=== PATIENT | male | born 1990 | race Asian ===

== ENCOUNTER 2017-06-25 06:04 | Inpatient (IN) | payer OTHER ==
[~2017-06-25] VITALS: Ht 182.9 cm; Wt 78.8 kg
[2017-06-25] VITALS (20 sets, daily range): BP systolic 119–155; BP diastolic 64–92; PULSE 71–108; RESP 10–20; Ht 182.9 cm; Wt 78.8 kg
[2017-06-25] MEDS ORDERED: MIDAZOLAM 1 MG/ML 2 ML INJ ONE ×2 (06:07→14:43)
[2017-06-25] MEDS ORDERED: ROPIVACAINE 0.5 % 30 ML VIAL ONE ×4 (06:08→15:46)
[2017-06-25] MEDS ORDERED: MIRT7.5T8 PO (06:46)
[2017-06-25] MEDS ORDERED: POLYMYXIN/BACITRACIN 1L IRRIG ONE (06:48)
[2017-06-25] MEDS ORDERED: LACTATED RINGER'S 1,000 ML IV SCH (07:00)
[2017-06-25] MEDS ORDERED: SEVOFLURANE 15 MIN ONE (07:00)
--- NOTE | 2017-06-25 07:31 | HPN ---
Date/Time of Note Date/Time of Note DATE: 06/25/17 TIME: 07:31 Interval H&P Admission Note Pt. seen H&P reviewed: No system changes DELTA PAREDES MD Jun 25, 2017 07:31
[2017-06-25] MEDS ORDERED: PHENYLephrine (100 MCG/ML) 5ML SYG ONE (07:36)
[2017-06-25] MEDS ORDERED: HEPARIN 1000 UNITS/ML 10 ML INJ ONE (08:12)
[2017-06-25] MEDS ORDERED: BUPIVACAINE 0.5% (SDV) 30 ML INJ ONE (08:49)
[2017-06-25] MEDS ORDERED: SODIUM CL BACTERIOSTATIC 30 ML INJ ZFS ONE (08:55)
[2017-06-25] MEDS ORDERED: ONDANSETRON 4 MG INJ ONE (11:28)
[2017-06-25] MEDS ORDERED: BACITRACIN/POLYMYXIN 28.35 GM OINT TOP ONE (11:28)
[2017-06-25] MEDS ORDERED: CEFAZOLIN 1 GM INJ ONE (11:28)
[2017-06-25] MEDS ORDERED: ROCURONIUM 50 MG INJ ONE (11:28)
[2017-06-25] MEDS ORDERED: PROPOFOL 20 ML ONE (11:28)
[2017-06-25] MEDS ORDERED: LIDOCAINE 2% (SDV) 5 ML INJ ONE (11:28)
[2017-06-25] MEDS ORDERED: morphine 10 MG INJ ONE (11:30)
[2017-06-25] MEDS ORDERED: BACITRACIN/POLYMYXIN 0.9 GM OINT TOP ONE (11:50)
--- NOTE | 2017-06-25 12:02 | OPR ---
Date/Time of Note Date/Time of Note DATE: 06/25/17 TIME: 11:57 Operative Report Preoperative Diagnosis Right subtalar post traumatic arthritis Postoperative Diagnosis Right subtalar post traumatic arthritis Operation/Procedure Performed Right subtalar arthrodesis with iliac crest autograft and allograft with bone marrow aspirate concentrate Surgeon: DELTA PAREDES MD diver assistant: LAWRENCE GEIGER Anesthesia: general Estimated Blood Loss: 10 - 50 ml's Grafts/Implants Iliac crest autograft Arthrex Arthrocell Allograft 2 75mm x 6.5 mm Partially threaded Arthrex Screws Bone Marrow Aspirate Concentrate Complications: None DELTA PAREDES MD Jun 25, 2017 12:02
[2017-06-25] MEDS ORDERED: ONDANSETRON 4 MG INJ IV PRN ×2 (12:30→16:00)
[2017-06-25] MEDS ORDERED: MEPERIDINE 25 MG INJ IV PRN (12:30)
[2017-06-25] MEDS ORDERED: DIPHENHYDRAMINE 50 MG INJ IV PRN (12:30)
[2017-06-25] MEDS ORDERED: NALOXONE (0.4 MG/ML) INJ IV PRN ×2 (12:30→16:30)
[2017-06-25] MEDS ORDERED: METOCLOPRAMIDE 10 MG INJ IV PRN (12:30)
[2017-06-25] MEDS ORDERED: morphine (1 MG/ML) 10ML SYRINGE IV PRN (12:30)
[2017-06-25] MEDS ORDERED: FENTAnyl 50 MCG/ML VIAL IV PRN (12:30)
[2017-06-25] MEDS: morphine 2 MG INJ IV PRN ×2 (13:28→16:43)
[2017-06-25] MEDS ORDERED: FENTAnyl 50 MCG/ML VIAL ONE ×2 (14:43→14:46)
[2017-06-25] MEDS ORDERED: BUPIVACAINE 0.5%/EPI (SDV) 30 ML INJ ONE (14:43)
[2017-06-25] MEDS ORDERED: HYDROmorphONE 1 MG/ML SYG IV STA (15:29)
[2017-06-25] MEDS ORDERED: OXYCODONE/ACETAMINOPHEN (5/325) TAB PO ONE (15:30)
[2017-06-25] MEDS ORDERED: BUPIVACAINE 0.25%/EPI (SDV) 30 ML INJ ONE (15:46)
[2017-06-25] MEDS ORDERED: CEFAZOLIN 1 GM INJ IV SCH (16:00)
[2017-06-25] MEDS ORDERED: oxyCODONE 5 MG TAB PO PRN (16:00)
[2017-06-25] MEDS ORDERED: MAGNESIUM HYDROXIDE 30ML CUP PO PRN (16:00)
[2017-06-25] MEDS ORDERED: HYDROmorphONE 0.2 MG/ML PCA ONE (16:05)
[2017-06-25] MEDS: HYDROmorphONE 0.2 MG/ML PCA IV SCH ×2 (16:15→20:11)
[2017-06-25] MEDS: CEFAZOLIN 1 GM/50 ML (PMX) 50 ML IVPB SCH ×2 (16:43→23:37)
[2017-06-25] MEDS: PREGABALIN 75 MG CAP GTB SCH (20:44)
[2017-06-25] MEDS: SENNA/DOCUSATE NA (8.6MG/50MG) TAB PO SCH (20:44)
[2017-06-25] MEDS: DIPHENHYDRAMINE 25 MG CAP PO PRN (21:18)
--- NOTE | 2017-06-25 22:32 | RADRPT ---
PROCEDURE: Intraoperative imaging of the right calcaneus with fluoroscopy. CLINICAL INDICATION: Right foot pain. Intraoperative. TECHNIQUE: 16 images of the right calcaneus were obtained in the operating room with an image inte nsifier. No radiologist was in attendance. Fluoroscopy time is 2.2 minutes. COMPARISON: No prior study is available for comparison. FINDINGS: Images demonstrate fusion of the subtalar joint with 2 cannulated screws. IMPRESSION: 1. Intraoperative imaging of the right calcaneus. RPTAT: QQ .Juventino Moreno MD, MD Date Time Electronically viewed and signed by .Juventino Moreno MD, on 06/25/2017 22:32 .R/
[2017-06-26] MEDS: HYDROmorphONE 0.2 MG/ML PCA IV SCH ×2 (00:10→04:18)
[2017-06-26 00:25] VITALS: BP 120/56; RESP 18
[2017-06-26] MEDS: DIPHENHYDRAMINE 25 MG CAP PO PRN ×5 (02:14→18:24)
--- NOTE | 2017-06-26 07:42 | PN ---
Date/Time of Note Date/Time of Note DATE: 06/26/17 TIME: 07:42 Assessment/Plan Lines/Catheters IV Catheter Type (from Nrsg): Peripheral IV Assessment/Plan Assessment/Plan POD# 1 s/p R Subtalar arthrodesis with ICBG and allograft - NWB to the RLE - PT to GT - DC steward/stewardess economy class - advance diet - likely dc home tomorrow - scds, teds Subjective 24 Hr Interval Summary Patient admitted post op for pain control. Pain was slightly better over night as the nerve block wore off right after surgery. He notes no f/c/n/v Constitutional: improved Feeding: advancing diet Pain Control: moderate Exam/Review of Systems Vital Signs Vitals Vital Signs Date Time Temp Pulse Resp B/P Pulse Ox O2 Delivery O2 Flow Rate FiO2 06/26/17 05:00 18 06/26/17 00:25 98.8 97 120/56 96 06/25/17 18:55 Room Air 06/25/17 12:27 2.0 Intake and Output 06/25/17 06/25/17 06/26/17 15:00 23:00 07:00 Intake Total 800 ml 650 ml 1840 ml Output Total 10 ml 900 ml 1350 ml Balance 790 ml -250 ml 490 ml Exam Constitutional: alert, oriented, well developed Musculoskeletal: other (RLE/ splint intact, toes wwp, cr brisk, silt to exposed m/l/d/p/fdws, toes wiggle) DELTA PAREDES MD Jun 26, 2017 07:42
[2017-06-26] MEDS ORDERED: oxyCODONE 5 MG TAB PO SCH (08:00)
[2017-06-26 08:25] VITALS: BP 131/75; RESP 16
[2017-06-26] MEDS: ASPIRIN 81 MG TAB PO SCH (08:36)
[2017-06-26] MEDS: PREGABALIN 75 MG CAP GTB SCH ×2 (08:37→20:59)
[2017-06-26] MEDS: oxyCODONE (CR) 10 MG TAB [oxyCONTIN] PO SCH ×2 (08:37→20:59)
[2017-06-26] MEDS: CEFAZOLIN 1 GM/50 ML (PMX) 50 ML IVPB SCH ×3 (08:37→23:29)
[2017-06-26] MEDS: SENNA/DOCUSATE NA (8.6MG/50MG) TAB PO SCH ×2 (08:37→20:59)
[2017-06-26] MEDS: oxyCODONE 5 MG TAB PO PRN ×3 (10:27→18:24)
[2017-06-26] MEDS: HYDROmorphONE 1 MG/ML SYG IV PRN ×5 (11:43→23:30)
[2017-06-26 14:00] VITALS: BP 132/75; RESP 18
--- NOTE | 2017-06-26 14:14 | RADRPT ---
PROCEDURE: XR Right Ankle. CLINICAL INDICATION: Right ankle pain. Postoperative. TECHNIQUE: 3 views. Frontal, lateral, and oblique. COMPARISON: 06/25/2017. FINDINGS: There are 2 cannulated screws transfixing the subtalar joint as seen on intraoperative images. The bone detail is obscured by the overlying cast. There is no obvious fracture or dislocation. IMPRESSION: 1. Satisfactory postoperative appearance of the right ankle. RPTAT: QQ .Juventino Moreno MD, MD Date Time Electronically viewed and signed by .Juventino Moreno MD, MD on 06/26/2017 14:13 .R/
--- NOTE | 2017-06-26 14:25 | RADRPT ---
PROCEDURE: XR Right Foot. CLINICAL INDICATION: Right foot pain. Postop. TECHNIQUE: Three views. Frontal, lateral, and oblique. COMPARISON: None. FINDINGS: Bone detail is obscured by the overlying cast. There is no obvious fracture or dislocation. There are 2 cannulated screws transfixing the subtalar joint with satisfactory alignment. There is no lytic or blastic lesion. IMPRESSION: 1. Satisfactory postoperative appearance of the right foot. RPTAT: QQ .Juventino Moreno MD, MD Date Time Electronically viewed and signed by .Juventino Moreno MD, MD on 06/26/2017 14:25 .R/
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
[2017-06-26 20:36] VITALS: BP 128/74; PULSE 77; RESP 18
[2017-06-27] MEDS: oxyCODONE 5 MG TAB PO PRN ×2 (02:17→12:11)
[2017-06-27 08:22] VITALS: BP 117/69; RESP 16
[2017-06-27] MEDS: SENNA/DOCUSATE NA (8.6MG/50MG) TAB PO SCH (09:03)
[2017-06-27] MEDS: CEFAZOLIN 1 GM/50 ML (PMX) 50 ML IVPB SCH (09:03)
[2017-06-27] MEDS: oxyCODONE (CR) 10 MG TAB [oxyCONTIN] PO SCH (09:03)
[2017-06-27] MEDS: ASPIRIN 81 MG TAB PO SCH (09:03)
[2017-06-27] MEDS: PREGABALIN 75 MG CAP GTB SCH (09:03)
[2017-06-27] MEDS: DIPHENHYDRAMINE 25 MG CAP PO PRN (09:19)
--- NOTE | 2017-06-27 12:54 | PN ---
Date/Time of Note Date/Time of Note DATE: 06/27/17 TIME: 12:54 Assessment/Plan Lines/Catheters IV Catheter Type (from Nrsg): Saline Lock Assessment/Plan Assessment/Plan POD# 2 s/p R Subtalar arthrodesis with ICBG and allograft - NWB to the RLE - PT to GT - appreciate pain mgmt recs - advance diet - likely dc home today - scds, teds Subjective 24 Hr Interval Summary pain is much better controlled now no f/c/n/v Exam/Review of Systems Vital Signs Vitals Vital Signs Date Time Temp Pulse Resp B/P Pulse Ox O2 Delivery O2 Flow Rate FiO2 06/27/17 08:22 97.9 69 16 117/69 97 06/26/17 20:36 Room Air 06/25/17 12:27 2.0 Intake and Output 06/26/17 06/26/17 06/27/17 15:00 23:00 07:00 Intake Total 250 ml 1670 ml 1850 ml Output Total 1900 ml 1500 ml Balance 250 ml -230 ml 350 ml Exam Constitutional: alert, oriented, well developed Musculoskeletal: other (rle/splint intact, toes wiggle, cr brisk, toes wwp,) DELTA PAREDES MD Jun 27, 2017 12:54
--- NOTE | 2017-06-27 14:01 | PDOCDIS ---
Discharge Instructions CONDITION Patient Condition: Good HOME CARE INSTRUCTIONS: Diet Instructions: RegularSpecial Diet: REGULAR ACTIVITY: Activity Restrictions: Slowly Increase Activity Rest between Activity Avoid heavy lifting Do not Drive Avoid Heavy Housework No Weight Bearing Bathing Restrictions: Sponge BathActivity Restrictions Comment: DO NOT GET CAST WET AT ANY TIME DELTA PAREDES MD Jun 27, 2017 14:01
--- NOTE | 2017-06-27 18:04 | QN ---
Documentation Comment [id number] DELTA PAREDES MD Jun 27, 2017 18:04
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
== END 2017-06-27 15:00 | disposition home or self-care (01) | DRG 505 ==
LOC: SDS 06:04 → MS1 15:48 → SDS 16:38 → MS1 16:38 → UNDOFXSDCSVC 16:38 → UNDOFXSDCACCOM 16:38
PROVIDERS: ADMIT Orthopaedic Surgery; ATTEND Orthopaedic Surgery
PROC: 0SGH0KZ Fusion of Right Tarsal Joint with Nonautologous Tissue Substitute, Open Approach (ICD-10-PCS; 2017-06-25)
PROC: 0SGH04Z Fusion of Right Tarsal Joint with Internal Fixation Device, Open Approach (ICD-10-PCS; 2017-06-25)
PROC: 0QB20ZZ Excision of Right Pelvic Bone, Open Approach (ICD-10-PCS; 2017-06-25)
PROC: 07DR3ZZ Extraction of Iliac Bone Marrow, Percutaneous Approach (ICD-10-PCS; 2017-06-25)
PROC: 0SGH07Z Fusion of Right Tarsal Joint with Autologous Tissue Substitute, Open Approach (ICD-10-PCS; principal; 2017-06-25 07:30)
DX: M19.171 Post-traumatic osteoarthritis, right ankle and foot (principal); Z72.0 Tobacco use
CPT/HCPCS: 73630; 73650; 82306; 97116; 97162; 97530; J0690; J1170; J1644; J2250; J2270; J2370; J2405; J2795; J3010